=== PATIENT | male | born 1980 | race Caucasian/White ===

== ENCOUNTER 2017-01-11 22:13 | Emergency (ER) | payer BC ==
[2017-01-11] MEDS ORDERED: SILVER SULFADIAZINE 1 % 25 GM TUBE TOP ONE (22:18)
[2017-01-11] MEDS ORDERED: HYDROcodone 10MG/APAP 325MG 1 EA TAB PO ONE (22:18)
[2017-01-11 22:26] VITALS: BP 142/67; TEMP 98.6; O2SAT 97
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
== END 2017-01-11 23:39 | disposition home or self-care (01) ==
LOC: ER 22:13
DX: T23.251A Burn of second degree of right palm, initial encounter (principal); T22.211A Burn of second degree of right forearm, initial encounter; W39.XXXA Discharge of firework, initial encounter